=== PATIENT | female | born 1985 | race Hispanic/Latino ===

== ENCOUNTER 2016-11-13 18:42 | Emergency (ER) | payer OTHER ==
[2016-11-13 18:51] VITALS: BP 132/89; PULSE 90; RESP 18; TEMP 98; O2SAT 100
[2016-11-13] MEDS ORDERED: Iohexol 240 (50 ml) PO STA (19:42)
--- NOTE | 2016-11-13 19:51 | ED PDOC ---
HPI: Abdomen Time Seen by Provider: 11/13/16 19:01 Chief Complaint (Nursing): Abdominal Pain Chief Complaint (Provider): Abdominal pain History Per: Patient History/Exam Limitations: no limitations Onset/Duration Of Symptoms: Days Outside of [place] travel?: No Current Symptoms Are (Timing): Still Present Location Of Pain/Discomfort: RLQ Quality Of Discomfort: "Pain" Associated Symptoms: Nausea, Vomiting, Diarrhea Additional History Per: Patient Additional Complaint(s): The pt is a 31yo female, PMHx of cholecystectomy, presents to ED for evaluation of right lower quadrant pain with some diarrhea, nausea and 1 episode of vomiting today. Pt denies any fever. She reports coming to the ER due to concerns about appendicitis and problems with her liver. Pt offers no additional medical complaints. Past Medical History Reviewed: Historical Data, Nursing Documentation, Vital Signs Vital Signs: Last Vital Signs Temp 98 F 11/13/16 18:48 Pulse 90 11/13/16 18:48 Resp 18 11/13/16 18:48 BP 132/89 11/13/16 18:48 Pulse Ox 100 11/13/16 23:50 - Medical History PMH: No Chronic Diseases - Surgical History Surgical History: Cholecystectomy - Family History Family History: States: Unknown Family Hx - Home Medications Home Medications: Ambulatory Orders Medication Instructions Recorded Azithromycin [Zithromax] 250 mg PO DAILY #6 tab 04/08/16 Ibuprofen [Motrin] 600 mg PO Q6H PRN #20 tab 04/08/16 Ondansetron [Zofran] 4 mg PO Q8H #12 tab 11/13/16 - Allergies Allergies/Adverse Reactions: Allergies Allergy/AdvReac Type Severity Reaction Status Date / Time No Known Allergies Allergy Verified 11/13/16 18:48 Review of Systems ROS Statement: Except As Marked, All Systems Reviewed And Found Negative Constitutional: Negative for: Fever Gastrointestinal: Positive for: Nausea, Vomiting, Abdominal Pain, Diarrhea Physical Exam - Reviewed Nursing Documentation Reviewed: Yes Vital Signs Reviewed: Yes - Physical Exam Appears: Positive for: Well, Non-toxic, No Acute Distress Head Exam: Positive for: ATRAUMATIC, NORMAL INSPECTION, NORMOCEPHALIC Skin: Positive for: Normal Color Eye Exam: Positive for: Normal appearance Neck: Positive for: Normal Cardiovascular/Chest: Positive for: Regular Rate, Rhythm Respiratory: Positive for: Normal Breath Sounds. Negative for: Respiratory Distress Gastrointestinal/Abdominal: Positive for: Soft, Tenderness (RLQ). Negative for : Guarding, Rebound Neurologic/Psych: Positive for: Alert, Oriented - Laboratory Results Result Diagrams: 11/13/16 20:00 11/13/16 20:00 - ECG O2 Sat by Pulse Oximetry: 100 (RA) Pulse Ox Interpretation: Normal Medical Decision Making Medical Decision Making: Time: 1909 Impression: appendicitis vs. gastroenteritis Plan: -- CT AP w/ IV Contrast -- CMP -- CBC -- Zofran 4mg IV Reassess 2339 Upon re-evaluation, patient is feeling much better and is medically stable and ready for discharge. Counseling has been provided and patient is in agreement. Return if symptoms persist or acutely worsen. Provider has given patient return precautions, such as worsening abdominal pain , fever, vomiting, and any other concerning symptom. Scribe Attestation: Documented by Clare Rivas acting as a scribe for Juan Harper MD. Provider Attestation: All medical record entries made by the Scribe were at my direction and personally dictated by me. I have reviewed the chart and agree that the record accurately reflects my personal performance of the history, physical exam, medical decision making, and the department course for this patient. I have also personally directed, reviewed, and agree with the discharge instructions and disposition. Disposition - Clinical Impression Clinical Impression: Gastroenteritis - Patient ED Disposition Is Patient to be Admitted: No - Disposition Referrals: Gogo Evans [Outside] Disposition: Routine/Home Disposition Time: 23:40 Condition: STABLE Prescriptions: Ondansetron [Zofran] 4 mg PO Q8H #12 tab Instructions: Gastroenteritis (ED)
[2016-11-13] MEDS ORDERED: Iohexol 240 (50 ml) ONE (20:13)
[2016-11-13 20:19] LABS: BASO % 0.4 % (0.0-2.0); EOS # 0.3 K/uL (0.0-0.7); EOS % 3.2 % (0.0-4.0); HEMOGLOBIN 10.7 g/dL (12.0-16.0); LYMPH # 3.1 K/uL (1.0-4.3); LYMPH % 32.2 % (20.0-40.0); MEAN CELL VOLUME 67.5 fl (81.0-99.0); MEAN CORPUSCULAR HEMOGLOBIN 21.3 pg (27.0-31.0); MEAN CORPUSCULAR HGB CONC 31.6 g/dL (33.0-37.0); MEAN PLATELET VOLUME 9.2 fl (7.2-11.7); MONO # 0.6 K/uL (0.0-0.8); MONO % 6.6 % (0.0-10.0); NEUT # 5.6 K/uL (1.8-7.0); NEUT % 57.6 % (50.0-75.0); NRBC % 0.1 % (0.0-0.0); RED CELL DISTRIBUTION WIDTH 14.4 % (11.5-14.5); WHITE BLOOD COUNT 9.8 K/uL (4.8-10.8)
[2016-11-13 20:36] LABS: ALB/GLOB RATIO 1.5 (1.0-2.1); ALBUMIN 4.4 g/dL (3.5-5.0); ALT/SGPT 38 U/L (9-52); AST/SGOT 28 U/L (14-36); BLOOD UREA NITROGEN 16 mg/dl (7-17); CALCIUM 9.4 mg/dL (8.4-10.2); GFR AFRICAN-AMERICAN > 60; GFR NON-AFRICAN AMERICAN > 60
[2016-11-13] MEDS ORDERED: Sodium Chloride 0.9% 50 ML IV ONE (20:45)
[2016-11-13] MEDS ORDERED: Iohexol 300 100 ML IJ ONE (20:45)
--- NOTE | 2016-11-14 09:17 | CT ---
PROCEDURE: CT Abdomen and Pelvis with contrast HISTORY: RLQ pain, r/o appendicitis COMPARISON: None. TECHNIQUE: CT scan of the abdomen and pelvis was performed after administration of intravenous contrast. Oral contrast was not administered. Contrast dose: 90 mL Omnipaque 300 Radiation dose: Total exam DLP = 452.10 mGy-cm. This CT exam was performed using one or more of the following dose reduction techniques: Automated exposure control, adjustment of the mA and/or kV according to patient size, and/or use of iterative reconstruction technique. FINDINGS: LOWER THORAX: The lung bases are clear. LIVER: There is mild hepatomegaly and diffuse low-attenuation in the liver. No gross lesion or ductal dilatation. GALLBLADDER AND BILE DUCTS: Surgically absent. PANCREAS: The pancreas is normal in size and there is homogeneous enhancement. No gross lesion or ductal dilatation. SPLEEN: The spleen is normal in size without focal lesion. ADRENALS: Both adrenal glands are normal in size without discrete nodule. KIDNEYS AND URETERS: Both kidneys are normal in size and there is homogeneous enhancement without hydronephrosis or focal mass. VASCULATURE: No aortic aneurysm. BOWEL: The small bowel loops are normal in caliber. The colon is unremarkable. APPENDIX: Normal appendix. PERITONEUM: No free fluid. No free air. LYMPH NODES: No enlarged lymph nodes. BLADDER: Unremarkable. REPRODUCTIVE: Unremarkable. BONES: No acute fracture. OTHER FINDINGS: None. IMPRESSION: No CT evidence for acute appendicitis. No acute abdominal or pelvic abnormality. A preliminary report was provided by [employer].
== END 2016-11-14 00:16 | disposition home or self-care (01) ==
LOC: H.ER 18:42
DX: K52.9 Noninfective gastroenteritis and colitis, unspecified (principal)

== ENCOUNTER 2018-07-29 22:13 | Emergency (ER) | payer OTHER ==
[2018-07-29 22:24] VITALS: BP 127/85; PULSE 99; RESP 16; TEMP 98.6; O2SAT 96
[2018-07-29] MEDS ORDERED: Tobramycin 0.3% OPHT SOLN OS ONE (22:45)
[2018-07-29] MEDS ORDERED: Tdap Vaccine 0.5 ml Vial (10-64 yrs) IM ONE ×2 (22:46→23:11)
--- NOTE | 2018-07-29 22:53 | ED PDOC ---
HPI: Eye Injury/Pain Time Seen by Provider: 07/29/18 22:24 Chief Complaint (Nursing): Eye Problem Chief Complaint (Provider): Eye Irritation History Per: Patient History/Exam Limitations: no limitations Onset/Duration Of Symptoms: Days (x1) Current Symptoms Are (Timing): Still Present Injury To Eye?: No Wears Contact Lens?: Yes Associated Symptoms: Swelling, Itching Additional Complaint(s): Patient is a 33 year old female who presents to the ED reporting left eye irritation since waking up this morning. Patient notes her symptoms worsened when she removed her contacts this afternoon, which is when she developed green mucus discharge to the eye and eyelid swelling/itching. Patient reports taking no medication [employer]. Patient reports she recently had a viral URI and does note her nephew had conjunctivitis last week. Patient denies recent fever, visual changes, headache, dizziness, N/V, abdominal pain, trauma to the eye. PMD: in [facility] Past Medical History Reviewed: Historical Data, Nursing Documentation, Vital Signs Vital Signs: Last Vital Signs Temp 98.6 F 07/29/18 22:21 Pulse 99 H 07/29/18 22:21 Resp 16 07/29/18 22:21 BP 127/85 07/29/18 22:21 Pulse Ox 96 07/29/18 22:21 - Medical History PMH: No Chronic Diseases - Surgical History Surgical History: Cholecystectomy - Family History Family History: States: Unknown Family Hx - Social History Current smoker - smoking cessation education provided: No Alcohol: None Drugs: Denies - Immunization History Hx Tetanus Toxoid Vaccination: No (not UTD) - Home Medications Home Medications: Ambulatory Orders Medication Instructions Recorded Azithromycin [Zithromax] 250 mg PO DAILY #6 tab 04/08/16 Ibuprofen [Motrin] 600 mg PO Q6H PRN #20 tab 04/08/16 Ondansetron [Zofran] 4 mg PO Q8H #12 tab 11/13/16 Cephalexin [Keflex] 500 mg PO TID #21 capsule 07/29/18 DiphenhydrAMINE [Benadryl] 25 mg PO Q6 PRN #20 cap 07/29/18 Tobramycin 0.3% [Tobrex 0.3% Ophth 1 drop OS Q4 #1 bottle 07/29/18 Soln] - Allergies Allergies/Adverse Reactions: Allergies Allergy/AdvReac Type Severity Reaction Status Date / Time No Known Allergies Allergy Verified 07/29/18 22:21 Review of Systems ROS Statement: Except As Marked, All Systems Reviewed And Found Negative Constitutional: Negative for: Fever Eyes: Positive for: Pain, Conjunctivae Inflammation, Eyelid Inflammation, Redness ENT: Negative for: Ear Pain, Throat Pain Respiratory: Negative for: Cough Gastrointestinal: Negative for: Nausea, Vomiting, Abdominal Pain Physical Exam - Reviewed Nursing Documentation Reviewed: Yes Vital Signs Reviewed: Yes - Physical Exam Comments: APPEARANCE: Patient is awake, alert, oriented x3; in no acute distress. HEENT: (-) facial swelling or erythema, (-) vesicles, (-) preauricular adenopathy. VISUAL ACUITIES (with glasses): Left: 20/ 25 : Right: 20/ 20 : Both: 20/20 LIDS & LASHES: (+)crusting to upper and lower eyelashes of left eye. (+) painless edema to upper and lower eyelids of left eye (+) faint erythema (-) warmth PUPILS: Pupils equal and reactive. EOM's: Intact and painless LID EVERSION: (-) foreign body. CONJUNCTIVAE: (+) mild diffuse injection of left eye, (+) minimal chemosis of la teral conjunctiva of left eye. ANTERIOR CHAMBER: (-) hyphema CHEST AND RESPIRATORY: (-) retractions, (-) rales, (-) rhonchi, (-) wheezes; breath sounds equal bilaterally. Respirations even and nonlabored. HEART AND CARDIOVASCULAR: (-) irregularity NECK: Supple, FROM (-) lymphadenopathy - ECG O2 Sat by Pulse Oximetry: 96 (RA) Pulse Ox Interpretation: Normal Medical Decision Making Medical Decision Makin Initial Impression: acute eye irritation, conjunctivitis Plan: -Visual acuity -Benadryl PO ( not driving home) -Tobramycin Ophthalmic 1 drop OS -Keflex 500mg PO -Adacel IM -Re-evaluation 2329 On re-evaluation, patient reports improvement of symptoms. On exam, patient remains AAOx3, in no acute distress.Vitals stable. Lab/Diagnostic results d/w the patient in great detail. Diagnosis of eye irritation, conjunctivitis d/w the patient. Based on history, exam and diagnostic results, plan will be for outpatient follow up with ophthalmology. Patient instructed to follow-up with pmd / referral provided / the clinic in 1- 2 days without fail. Advised to take medication as prescribed. Return to the emergency room at any time for any new or worsening symptoms. Patient states she fully agrees with and understands discharge instructions. States that she agrees with the plan and disposition. Verbalized and repeated discharge instructions and plan. I have given the patient opportunity to ask any additional questions. Disposition - Clinical Impression Clinical Impression: Eye irritation, Conjunctivitis - Patient ED Disposition Is Patient to be Admitted: No Counseled Patient/Family Regarding: Studies Performed, Diagnosis, Need For Followup, Rx Given - Disposition Referrals: Livan Moctezuma MD [Staff Provider] - Disposition: Routine/Home Disposition Time: 23:30 Condition: STABLE Additional Instructions: FOLLOW UP WITH [facility]RE [facility]PERATOR WITHIN 48 HOURS. REFERRAL PROVIDED. AVOID CONTACT USE X2 WEEKS. The emergency medical care you received today was directed at your acute symptoms. If you were prescribed any medication, please fill it and take as directed. It may take several days for your symptoms to resolve. Return to the Emergency Department if your symptoms worsen, do not improve, or if you have any other problems. Please contact your doctor in 2 days for re-evaluation and follow up / or call one of the physicians/clinics you have been referred to that are listed on the Patient Visit Information form that is included in your discharge packet. Bring any paperwork you were given at discharge with you along with any medications you are taking to your follow up visit. Our treatment cannot replace ongoing medical care by a primary care provider (PCP) outside of the emergency department. Prescriptions: Cephalexin [Keflex] 500 mg PO TID #21 capsule DiphenhydrAMINE [Benadryl] 25 mg PO Q6 PRN #20 cap PRN Reason: Itching / Pruritus Tobramycin 0.3% [Tobrex 0.3% Ophth Soln] 1 drop OS Q4 #1 bottle Instructions: Conjunctivitis ([place]), How to Care for Your Eyes, How to Use Eye Drops Forms: [facility] [place] (Romanian), [facility] School/Work Excuse Print Language: WOLOF - POA Present On Arrival: None
== END 2018-07-29 23:48 | disposition home or self-care (01) ==
LOC: H.ER 22:13
DX: H10.9 Unspecified conjunctivitis (principal); H57.89 Other specified disorders of eye and adnexa; Z23 Encounter for immunization